=== PATIENT | male | born 1960 ===

== ENCOUNTER 2018-10-29 06:31 | Day surgery (SDC) | payer OTHER ==
[2018-10-29] MEDS ORDERED: RECTICARE30 GM TOP (11:01)
[2018-10-29] MEDS ORDERED: ULTRACET PO (11:01)
== END 2018-10-29 12:36 | disposition home or self-care (01) ==
LOC: AMB-ENDOS 06:31
DX: R19.4 Change in bowel habit (principal); K64.8 Other hemorrhoids